=== PATIENT | male | born 1965 | race Caucasian/White ===

== ENCOUNTER → 2017-10-25 10:42 | Outpatient (CLI) | payer SELFPAY | PROVIDERS: PCP Internal Medicine Adolescent Medicine; Visit Provider Nurse Practitioner Family | DX: Z02.4 Encounter for examination for driving license (principal) ==

== ENCOUNTER 2020-08-21 16:57 | Observation (INO) | payer MEDICAID, SELFPAY ==
[2020-08-21] VITALS (16 sets, daily range): BP systolic 109–157; BP diastolic 56–103; PULSE 73–108; RESP 12–20; TEMP 36.4–43; O2SAT 92–97; BMI 24.4; BMI 24.5
--- NOTE | 2020-08-21 17:26 | HMH.EDUTC ---
[facility] – [place], [place] Disposition Clinical Impression: Abdominal pain Qualifiers: Abdominal location: unspecified location Qualified Code(s): R10.9 - Unspecified abdominal pain Disposition: Still a Patient Condition on Discharge: Good Referrals: PCP,Monique [Primary Care Provider] - Time of Disposition: 17:36 Medical Decision Making - Shant Inquiry Pt receiving controlled substance: No Shant was queried for this patient: No Vital Signs: 08/21/20 17:22 Temperature 98.5 F Temperature Source Oral Pulse Rate [Radial] 89 Respiratory Rate 14 Blood Pressure [Right Arm] 157/103 H Blood Pressure Mean [Right Arm] 121 Blood Pressure Source [Right Arm] Automatic Cuff Blood Pressure Position [Right Arm] Sitting 02 Sat by Pulse Oximetry 97 Oxygen Delivery Method Room Air Medical Decision Narrative: Patient unable to sit upright due to pain and advised that he is unable to urinate at this time, due to complaint of abdominal pain recommended that patient be transferred to the ED for further evaluation and treatment and patient agreed, Called ED spoke with Armida Burnett RN and patient report given and patient transferred to room 10 via wheelchair without difficulty [facility] – [place], [place] HPI - General Stated complaint: Abd pain Time Seen by Provider: 08/21/20 17:26 Mode of Arrival: Ambulatory Source of Information: Patient Limitations: No Limitations Description of Symptoms (Recalled from Triage Doc. by RN): abdominal pain, no appetite, started th morning, pain so bad it went down on his knees. 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 States that now he isnt able to stand up straight and hurts when he walks or touches his abdomen States that he has had similar eppisodes in the past but they improved but this time the pain has continued Unsure if he had a fever or not but thinks he may have had one yesterday Last BM early this morning - Related Data Home Medications Medication Instructions Recorded Confirmed No Known Home Medications 10/11/19 10/11/19 Allergies Allergy/AdvReac Type Severity Reaction Status Date / Time codeine [CODEINE] Allergy Unknown Verified 10/11/19 11:36 - Worker's Comp Is this a Worker's Comp case?: No [facility] History - Hepatitis A Screen Drug use history?: No High risk sexual behaviors?: No History of sexually transmitted infection?: No Currently employed?: No Childcare worker?: No Do you have indoor plumbing?: Yes Do you have electricity?: Yes Attestation statement:: This patient has been screened for Hepatitis A risk factors. I have reviewed the patient's past medical history: Yes Medical History: Reports:: Chronic Obstructive Pulmonary Disease (COPD) Comment: re-reconstructive surgery on R ankle, jaw. Cervical spine surgery. - Social History Smoking Status: Current every day smoker Tobacco Type: cigarettes # Packs/Day (cigarettes): 1 Alcohol Intake: never Occupational Status: employed Family Hx:: No significant family history ROS Obtained: Yes All systems reviewed & no additional complaints, Yes Systems reviewed as appropriate & no additional complaints - Constitutional Constitutional: Reports system reviewed and no additional complaints, except a
--- NOTE | 2020-08-21 17:36 | CT_ITS ---
PROCEDURE: CT ABDOMEN PELVIS W CON CLINICAL INDICATION: abd pain Right-sided and mid abdominal pain COMPARISON: No exams were available for comparison TECHNIQUE: IV Contrast: 75ML Isovue 370 Oral Contrast None Axial images obtained with sagittal and coronal reformats. All CT scans at the facility use one or more dose reduction, viz: automated exposure control, ma/kV adjustment per patient size (including targeted exams where dose is matched to indication, i.e. head), or iterative reconstruction technique. FINDINGS: LOWER THORAX: There are atelectatic changes in the right middle and right lower lobe. ABDOMEN & PELVIS: There is a small hiatal hernia. The liver, gallbladder, spleen, adrenal glands, and pancreas have an unremarkable appearance. No renal or ureteral calculi. There are bilateral exophytic renal cyst and there is mild stranding of the perinephric renal fat on both sides. The No intestinal obstruction or free air. The appendix is mildly distended at 9 mm with stranding of the periappendiceal fat consistent with acute appendicitis. No evidence of abscess or perforation. There is mild thickening of the anterior pararenal fascia on the right. Bowel gas pattern is nonspecific with a few scattered air-fluid levels within the small bowel. Urinary bladder wall is mildly thickened but could be due to nondistention. No free air evident the. There is a 5 mm calcific density within the region of the central aspect of the penis. This could be due to a vascular calcification or a stone within the penile urethra. No acute bony findings. There is degenerative disc disease at L5-S1. IMPRESSION: 1. Findings compatible with acute appendicitis. No evidence of abscess or perforation. 2. 5 x 2 mm calcific density within the central aspect of the penis which could be vascular calcification or stone within the penile urethra. Dictated by: Bob Serrano MD 08/22/2020 06:50 Bob Serrano MD in [place] 08/22/2020 06:50
--- NOTE | 2020-08-21 17:41 | HMH.EDGENADL ---
ED Disposition Clinical Impression: Abdominal pain Qualifiers: Abdominal location: unspecified location Qualified Code(s): R10.9 - Unspecified abdominal pain Acute appendicitis Qualifiers: Acute appendicitis type: with localized peritonitis Appendicitis gangrene presence: without gangrene Appendicitis perforation presence: without perforation Appendicitis abscess presence: without abscess Qualified Code(s): K35.30 - Acute appendicitis with localized peritonitis, without perforation or gangrene Disposition: Admitted as Observation Condition on Discharge: Fair Referrals: PCP,No [Primary Care Provider] - - Critical Care Critical Care Time: No Attestation: On 08/21/20, the high probability of a clinically significant, sudden or life threatening deterioration of the following system(s) required my full and direct attention, intervention and personal management. The time I documented below is in addition to time spent performing reported procedures but includes the following listed in this critical care notation. Medical Decision Making - Shant Inquiry Pt receiving controlled substance: No Shant was queried for this patient: No Vital Signs: 08/21/20 17:22 08/21/20 17:35 Temperature 98.5 F 98.1 F Temperature Source Oral Oral Pulse Rate [Radial] 89 80 Respiratory Rate 14 18 Blood Pressure [Right Arm] 157/103 H 156/97 H Blood Pressure Mean [Right Arm] 121 116 Blood Pressure Source [Right Arm] Automatic Cuff Automatic Cuff Blood Pressure Position [Right Arm] Sitting Sitting 02 Sat by Pulse Oximetry 97 97 Oxygen Delivery Method Room Air Room Air - Lab Data Lab Results 08/21/20 17:41: Urine Color Yellow, Urine Appearance Clear, Urine pH 6.0, Ur Specific [place] 1.025, Urine Protein Negative, Urine Glucose (UA) Negative, Urine Ketones Negative, Urine Blood Negative, Urine Nitrate Negative, Urine Bilirubin Negative, Urine Urobilinogen 0.2, Ur Leukocyte Esterase Negative, Urine RBC 3-5, Ur Squamous Epith Cells Occasional 08/21/20 18:01: WBC 9.3, RBC 4.87, Hgb 15.2, Hct 46.9, MCV 96.3 H, MCH 31.2, MCHC 32.4, RDW 13.6, Plt Count 308, MPV 7.8, Neut % (Auto) 60.2, Lymph % (Auto) 31.0, [place] % (Auto) 6.9, Eos % (Auto) 1.3, Baso % (Auto) 0.7, Neut # (Auto) 5.6, Lymph # (Auto) 2.9, [place] # (Auto) 0.6, Eos # (Auto) 0.1, Baso # (Auto) 0.1 08/21/20 18:01: Sodium 138, Potassium 3.9, Chloride 100, Carbon Dioxide 31 H, Anion Gap 10.9, BUN 10, Creatinine 0.90, Estimated Creat Clear 105, Estimated GFR 88, Est GFR ( Amer) 106, Glucose 105 H, Calcium 9.7, Total Bilirubin 1.1, AST 29, ALT 29, Alkaline Phosphatase 87, Total Protein 8.3 H, Albumin 4.9, Globulin 3.4 H, Albumin/Globulin Ratio 1.4 08/21/20 18:01: SARS-CoV-2 IgG Ab (Rapid) Negative, SARS-CoV-2 IgM Ab (Rapid) Negative Result diagrams: 08/21/20 18:01 08/21/20 18:01 Orders (Tests/Meds): ED MEDICATIONS Generic Name Dose Route Start Last Admin Trade Name Freq PRN Reason Stop Dose Admin Sodium Chloride 1,000 mls @ 999 mls/hr 08/21/20 17:45 08/21/20 17:47 Sod Chlor 0.9% 1000ml Bag IV 08/21/20 18:45 999 mls/hr .Q1H1M EARLINE Administration Lactated Ringer's 1,000 mls @ 100 mls/hr 08/21/20 20:00 Lactated Ringer's 1000 Ml Bag IV 09/20/20 19:59 .Q10H EARLINE Discontinued Medications Generic Name Dose Route Start Last Admin Trade Name Freq PRN Reason Stop Dose Admin Fentanyl Citrate 50 mcg 08/21/20 19:20 08/21/20 19:24 Fentanyl 100mcg/2ml Vial IV 08/21/20 19:21 50 mcg ONCE ONE Administration Cefotetan Disodium 2 gm/ 100 mls @ 200 mls/hr 08/21/20 19:33 Sodium Chloride IV 08/21/20 19:34 ONCE ONE Protocol Iopamidol 75 ml 08/21/20 18:47 08/21/20 18:48 Iopamidol-370 (76%);100ml Bottle IV 08/21/20 18:48 75 ml ONCE ONE Administration Ketorolac Tromethamine 30 mg 08/21/20 17:45 08/21/20 17:47 Ketorolac 30mg/Ml Vial IV 08/21/20 17:46 30 mg ONCE ONE Administration Ondansetron HCl 4 mg 08/21/20 17:45
[2020-08-21 17:46] LABS: Microscopic, Urine URINE MICROSCOPIC (MICROSCOPIC)
[2020-08-21 17:50] LABS: Appearance,Urine CLEAR (Clear); Bilirubin,Urine Negative (Negative); Blood, Urine Negative (Negative); Color,Urine YELLOW (Yellow); Glucose,Urine (UA) Negative (Negative); Ketones,Urine Negative (Negative); Leukocyte Esterase,Urine Negative (Negative); Nitrate,Urine Negative (Negative); Protein,Urine Negative (Negative); Specific Gravity, Urine 1.025 (1.005-1.030); Urobilinogen,Urine 0.2 EU/dl (0.2)
[2020-08-21 18:10] LABS: Basophils # 0.1 K/mm3 (0-0.2); Basophils % 0.7 % (0.1-2.0); Eosinophils # 0.1 K/mm3 (0.0-0.4); Eosinophils % 1.3 % (0.1-12.0); Hematocrit 46.9 % (42.0-52.0); Hemoglobin 15.2 g/dL (14.1-18.0); Lymphocytes # 2.9 K/mm3 (0.7-4.5); Mean Corpuscular HGB Conc 32.4 g/dL (31.8-35.4); Mean Corpuscular Hemoglobin 31.2 pg (27.0-31.2); Mean Corpuscular Volume 96.3 fl (80-94); Mean Platelet Volume 7.8 fl (7.4-10.4); Monocytes # 0.6 K/mm3 (0.1-1.0); Monocytes % 6.9 % (1.7-9.3); Neutrophils # 5.6 K/mm3 (1.8-7.8); Neutrophils % 60.2 % (37.0-80.0); Platelet Count 308 K/mm3 (142-424); Red Blood Count 4.87 M/mm3 (4.60-6.20); Red Cell Distribution Width 13.6 % (11.5-17.5); White Blood Count 9.3 K/mm3 (4.8-10.8)
--- NOTE | 2020-08-21 18:15 | PC.NURSE ---
Patient gone to radiology
[2020-08-21 18:16] LABS: Chloride 100 mmol/L (98-107); Potassium 3.9 mmoL/L (3.5-5.1); Sodium 138 mmol/L (136-145)
[2020-08-21 18:19] LABS: Alanine Aminotransferase 29 U/L (12-78); Albumin Level 4.9 g/dl (3.5-5.0); Albumin/Globulin Ratio 1.4 (1.1-1.8); Alkaline Phosphatase 87 U/L (38-126); Anion Gap 10.9 mEq/L (5-15); Aspartate Amino Transferase 29 U/L (17-59); Bilirubin,Total 1.1 mg/dl (0.2-1.3); Blood Urea Nitrogen 10 mg/dl (9-20); Carbon Dioxide 31 mmol/L (22.0-30.0); Creatinine Clearance Estimated 105 mL/min (50-200); Estimated Glomerular Filt Rate 88 ml/min (>60); GFR (African American) 106 ML/MIN (>60); Globulin 3.4 g/dL (1.3-3.2); Total Protein,Serum 8.3 g/dl (6.3-8.2)
[2020-08-21 18:20] LABS: Calcium 9.7 mg/dl (8.4-10.2); Glucose 105 mg/dl (74-100)
--- NOTE | 2020-08-21 18:26 | PC.NURSE ---
pt back from radiology
[2020-08-21 18:31] LABS: Squamous Epithelial Cell,Urine Occasional #/hpf (0-5)
--- NOTE | 2020-08-21 19:00 | PC.NURSE ---
pt return from Ct
--- NOTE | 2020-08-21 19:29 | PC.NURSE ---
Dr speaking with Dr Jarvis at this time
[2020-08-21 19:33] LABS: Coronavirus 19 IgG Antibody Negative (Negative); Coronavirus 19 IgM Antibody Negative (Negative)
--- NOTE | 2020-08-21 19:33 | PC.NURSE ---
MILLA, BLOCK HAND SPOKE TO ANKITA VALLES AND NOTIFIED OF SURGERY.
--- NOTE | 2020-08-21 20:16 | HMH.GSHP ---
HPI HPI: Patient is a 55-year-old male with history of COPD and history of opiate addiction on Suboxone. For several weeks he has had intermittent waxing and waning right lower quadrant abdominal pain. Yesterday states he had significant onset of abdominal pain. It is quite severe. 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 He drove himself back to [place] from [place]. He presented to the emergency department and there was concern for possible acute appendicitis. He underwent CT scan which revealed findings consistent with uncomplicated appendicitis. Surgical consultation was obtained. [facility] History Medical History: Reports:: Chronic Obstructive Pulmonary Disease (COPD) *Have you ever received a pneumonia vaccine?: No *Have you received a flu vaccine this season?: No - *Social History Smoking Status: Current every day smoker Tobacco Type: cigarettes # Packs/Day (cigarettes): 1 Alcohol Intake: never *Occupational Status:: employed *Travel in the last 8 weeks: None Family Hx:: No significant family history Review of Systems - Review of Systems Review of systems:: pertinent systems reviewed and negative unless documented below Meds Home Medications Medication Instructions Recorded Confirmed Type No Known Home Medications 10/11/19 10/11/19 History Allergies Allergy/AdvReac Type Severity Reaction Status Date / Time codeine [CODEINE] Allergy Unknown Verified 10/11/19 11:36 Exam Vital signs and Labs for Last 24 Hours: Temp Pulse Resp BP Pulse Ox 98.1 F 80 18 156/97 H 97 08/21/20 17:35 08/21/20 17:35 08/21/20 17:35 08/21/20 17:35 08/21/20 17:35 Laboratory Results - last 24 hr 08/21/20 17:41: Urine Color Yellow, Urine Appearance Clear, Urine pH 6.0, Ur Specific [place] 1.025, Urine Protein Negative, Urine Glucose (UA) Negative, Urine Ketones Negative, Urine Blood Negative, Urine Nitrate Negative, Urine Bilirubin Negative, Urine Urobilinogen 0.2, Ur Leukocyte Esterase Negative, Urine RBC 3-5, Ur Squamous Epith Cells Occasional 08/21/20 18:01: WBC 9.3, RBC 4.87, Hgb 15.2, Hct 46.9, MCV 96.3 H, MCH 31.2, MCHC 32.4, RDW 13.6, Plt Count 308, MPV 7.8, Neut % (Auto) 60.2, Lymph % (Auto) 31.0, [place] % (Auto) 6.9, Eos % (Auto) 1.3, Baso % (Auto) 0.7, Neut # (Auto) 5.6, Lymph # (Auto) 2.9, [place] # (Auto) 0.6, Eos # (Auto) 0.1, Baso # (Auto) 0.1 08/21/20 18:01: Sodium 138, Potassium 3.9, Chloride 100, Carbon Dioxide 31 H, Anion Gap 10.9, BUN 10, Creatinine 0.90, Estimated Creat Clear 105, Estimated GFR 88, Est GFR ( Amer) 106, Glucose 105 H, Calcium 9.7, Total Bilirubin 1.1, AST 29, ALT 29, Alkaline Phosphatase 87, Total Protein 8.3 H, Albumin 4.9, Globulin 3.4 H, Albumin/Globulin Ratio 1.4 08/21/20 18:01: SARS-CoV-2 IgG Ab (Rapid) Negative, SARS-CoV-2 IgM Ab (Rapid) Negative I & O for Last 24 hours: Intake & Output 08/19/20 08/20/20 08/21/20 08/22/20 11:59 11:59 11:59 11:59 Weight 175 lb 0.012 oz - *Routine HEENT Exam Head: Present: normocephalic Eye: Present: EOMI, PERRL ENT: Present: mucous membranes moist - *Routine Neck Exam Present: supple. Absent: lymphadenopathy - *Routine Respiratory Exam Present: CTA bilaterally - *Routine Cardiovascular Exam Present: RRR - *Routine Abdominal Exam Present: soft, normoactive bowel sounds, tenderness Comments: He has tenderness with guarding or rebound of the right lower quadrant - *Routine Extremities Exam Absent: cyanosis, clubbing, edema - *Routine Skin Exam Present: warm. Absent: rash - *Routine Neurological Exam Present: alert, oriented X3 Results - Results Lab Results Last 24 Hours:: Laboratory Results - last 24 hr 08/21/20 17:41: Urine Color Yellow, Urine Appearance Clear, Urine pH 6.0, Ur Specific [place] 1.025, Urine Protein Negative, Urine Glucose (UA) Negative, Urine Ketones Negative, Urine Blood Negative, Urine Nitrate Negative, Urine Bilirubin Negative, Urine Urobilinogen 0.2, Ur Leukocyte Esterase Negative, Urine
--- NOTE | 2020-08-21 20:50 | P.PN_ITS ---
[facility] Anesthesia Checklist - Structural Data Admitted From: Emergency Dept Planned Operative Procedure/s: lap appy Consent for Planned Operative Procedure(s) Verified: Yes - Airway Assessment C-Spine Mobility Assessed: Yes TMJ Mobility Assessed: Yes Dentition: Poor Dentition - Neurological Assessment Level of Consciousness: Awake, Alert, Appropriate - Anesthesia Plan Anesthesia Risk discussed: Yes Anesthesia Plan: Verified ASA Class: II Anesthesia Type: General [facility] History I have reviewed the patient's past medical history: Yes Medical History: Reports:: Chronic Obstructive Pulmonary Disease (COPD) *Have you ever received a pneumonia vaccine?: No *Have you received a flu vaccine this season?: No Anesthesia experience/problems:: none - *Social History Smoking Status: Current every day smoker Tobacco Type: cigarettes # Packs/Day (cigarettes): 1 Alcohol Intake: never Substance Use Type: denies use *Occupational Status:: employed *Travel in the last 8 weeks: None Family Hx:: No significant family history
--- NOTE | 2020-08-21 21:09 | PC.NURSE ---
patient admitted [id number]
--- NOTE | 2020-08-21 21:42 | P.OP_ITS ---
Date of procedure: 08/21/20 Pre-op Diagnosis:: Acute appendicitis Post-op Diagnosis:: Same Procedure performed:: Laparoscopic appendectomy Surgeon:: Steve Huizar MD COMMERCIAL LEASING MANAGER:: Nish Edwards Anesthesia: GETA Estimated blood loss (mL): 20 Clinical Note:: Patient is a 55-year-old male with history of COPD and history of opiate addiction on Suboxone. For several weeks he has had intermittent waxing and waning right lower quadrant abdominal pain. Yesterday states he had significant onset of abdominal pain. It is quite severe. 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 He drove himself back to [employer] from [place]. He presented to the emergency department and there was concern for possible acute appendicitis. He underwent CT scan which revealed findings consistent with uncomplicated appendicitis. Surgical consultation was obtained. Patient was seen and examined in the emergency department. He had focal peritonitis in the right lower quadrant. Plan was made for emergent appendectomy Operative findings:: Patient had a significantly inflamed suppurative but nonperforated appendicitis. There were inflammatory adhesions of the terminal ileum to the appendix which was adherent to the right pelvic sidewall. Operative note:: Consent was obtained patient taken emergently to the operating room. He was positioned in a supine position. He was given broad-spectrum intravenous antibiotic. General anesthesia was induced. Ayala catheter was placed. Abdomen was prepped and draped in the standard surgical fashion. Subumbilical skin incision was made and while performing abdominal wall the Veress needle was inserted. CO2 pneumoperitoneum was achieved to 15 mmHg. 12 mm optical trocar was inserted at the umbilicus. Intraperitoneal contents were visualized. There was noted to be findings consistent with peritoneal inflammation with some patchy erythema of the small bowel serosa. 5 mm trocar was inserted in the suprapubic location and additional 5 mm trocar was inserted through the right upper abdominal trocar site. Terminal ileum was adherent to the right lateral pelvic sidewall due to acute inflammation. There was noted to be significantly inflamed appendix. This was grasped with an endoscopic [place]. There is some relatively thick lateral peritoneal attachments which required careful dissection with laparoscopic Metzenbaum dissection and maria d ultrasonic robotic samantha. The mesoappendix was divided with a's ultrasonic robotic samantha with care taken to coagulate the appendiceal artery in the process. Dissection was carried down to the appendiceal base which was somewhat difficult due to the acute and chronic inflammation. Ultimately the appendix was divided at its base with an endoscopic BENOIT linear cutting stapling device. This required 2 firings of the BENOIT linear cutting stapling device. Staple line appeared hemostatic and had good integrity. Appendix was placed within an Endo Catch retrieval device removed from the peritoneal cavity via the umbilical trocar site. Limited irrigation was performed. There appeared to be good hemostasis. Trochars were removed and CO2 pneumoperitoneum was evacuated. Fascia at the umbilicus was closed with a couple of interrupted 0 Vicryl sutures. Local anesthetic was infiltrated. Skin incisions were closed with 4-0 Monocryl in subcuticular fashion. Steri-Strips and clean dry sterile dressings were applied. Condition: stable Disposition: PACU Specimens:: Appendix Complications:: None immediately apparent
--- NOTE | 2020-08-21 21:58 | P.PN_ITS ---
[facility] Anesthesia Record Part I Intake, IV Amount: 1,500 Estimated blood loss (mL): 0 Urine output (mL): 300 Blood Pressure: 137/56 SaO2: 92 Pulse Rate: 108 Respiratory Rate: 14 Temperature: 97.5 F Patient is:: Awake, Stable Stable to PACU at:: 21:55
--- NOTE | 2020-08-21 22:30 | PC.NURSE ---
patient up to floor from surgery.
[2020-08-21 22:39] LABS: Microscopic,Cath URINE MICROSCOPIC (MICROSCOPIC)
[2020-08-21 22:55] LABS: Appearance,Urine/Cath CLEAR (Clear); Bilirubin,Cath Negative (Negative); Blood, Urine/Cath Negative (Negative); Color,Urine/Cath YELLOW (Yellow); Glucose,Urine/Cath (UA) Negative (Negative); Ketones,Urine/Cath Negative (Negative); Leukocyte Esterase,Cath Negative (Negative); Nitrate,Cath Negative (Negative); Protein,Urine/Cath Negative (Negative); Specific Gravity, Urine/Cath <= 1.005 (1.005-1.030); Urobilinogen,Cath 0.2 EU/dl (0.2)
[2020-08-21 23:37] LABS: Bacteria,Urine/Cath TRACE /lpf; WBC,Urine/Cath Occasional #/hpf (0-3)
[2020-08-22] VITALS (14 sets, daily range): BP systolic 90–124; BP diastolic 49–70; PULSE 52–71; RESP 14–20; TEMP 36.6–36.9; O2SAT 92–98; BMI 25.4
--- NOTE | 2020-08-22 04:06 | PC.NURSE ---
Pt A&OX4. lungs cta. pt c/o abd pain medicated per DEC. post appy surgical dressing in place c/d/i. pt voids per urinal. 20RAC LR @ 100 ml/hr. pt has rested at intervals in this shift.
--- NOTE | 2020-08-22 06:57 | HMH.GSPN ---
Subjective Narrative: He states that he is very sore this morning . Progress Note: A&P (1) Suppurative appendicitis Status: Acute Assessment and plan: Overall, doing fairly well status post laparoscopic appendectomy. Follow-up morning labs Increase ambulation Continue antibiotics for now (may discharge with short course of antibiotics secondary to suppurative nature of appendicitis) Slowly increase diet Exam Vital signs and Labs for Last 24 Hours: Temp Pulse Resp BP Pulse Ox 98.4 F 55 L 16 99/59 L 92 L 08/22/20 05:15 08/22/20 05:15 08/22/20 05:15 08/22/20 05:15 08/22/20 06:56 Laboratory Results - last 24 hr 08/21/20 17:41: Urine Color Yellow, Urine Appearance Clear, Urine pH 6.0, Ur Specific [place] 1.025, Urine Protein Negative, Urine Glucose (UA) Negative, Urine Ketones Negative, Urine Blood Negative, Urine Nitrate Negative, Urine Bilirubin Negative, Urine Urobilinogen 0.2, Ur Leukocyte Esterase Negative, Urine RBC 3-5, Ur Squamous Epith Cells Occasional 08/21/20 18:01: WBC 9.3, RBC 4.87, Hgb 15.2, Hct 46.9, MCV 96.3 H, MCH 31.2, MCHC 32.4, RDW 13.6, Plt Count 308, MPV 7.8, Neut % (Auto) 60.2, Lymph % (Auto) 31.0, [place] % (Auto) 6.9, Eos % (Auto) 1.3, Baso % (Auto) 0.7, Neut # (Auto) 5.6, Lymph # (Auto) 2.9, [place] # (Auto) 0.6, Eos # (Auto) 0.1, Baso # (Auto) 0.1 08/21/20 18:01: Sodium 138, Potassium 3.9, Chloride 100, Carbon Dioxide 31 H, Anion Gap 10.9, BUN 10, Creatinine 0.90, Estimated Creat Clear 105, Estimated GFR 88, Est GFR ( Amer) 106, Glucose 105 H, Calcium 9.7, Total Bilirubin 1.1, AST 29, ALT 29, Alkaline Phosphatase 87, Total Protein 8.3 H, Albumin 4.9, Globulin 3.4 H, Albumin/Globulin Ratio 1.4 08/21/20 18:01: SARS-CoV-2 IgG Ab (Rapid) Negative, SARS-CoV-2 IgM Ab (Rapid) Negative 08/21/20 20:15: Urine Color Yellow, Urine Appearance Clear, Urine pH 6.0, Ur Specific [place] <= 1.005, Urine Protein Negative, Urine Glucose (UA) Negative, Urine Ketones Negative, Urine Blood Negative, Urine Nitrate Negative, Urine Bilirubin Negative, Urine Urobilinogen 0.2, Ur Leukocyte Esterase Negative, Urine WBC Occasional, Urine Bacteria Trace I & O for Last 24 hours: Intake & Output 08/19/20 08/20/20 08/21/20 08/22/20 11:59 11:59 11:59 11:59 Intake Total 3316 / 3316 Output Total 400 / 400 Balance 2916 / 2916 Weight 181 lb 7 oz - Constitutional no acute distress - *Routine Respiratory Exam Absent: respiratory distress - *Routine Cardiovascular Exam Present: RRR - *Routine Abdominal Exam Present: soft Comments: Dressings intact. Dressings are dry. No erythema.
[2020-08-22 07:05] LABS: Basophils % 0.1 % (0.1-2.0); Eosinophils % 0.1 % (0.1-12.0); Lymphocytes # 0.8 K/mm3 (0.7-4.5); Lymphocytes % 12.4 % (10-50); Mean Corpuscular HGB Conc 32.9 g/dL (31.8-35.4); Mean Corpuscular Hemoglobin 32.4 pg (27.0-31.2); Mean Corpuscular Volume 98.3 fl (80-94); Mean Platelet Volume 8.2 fl (7.4-10.4); Monocytes # 0.1 K/mm3 (0.1-1.0); Monocytes % 1.9 % (1.7-9.3); Neutrophils # 5.2 K/mm3 (1.8-7.8); Neutrophils % 85.5 % (37.0-80.0); Platelet Count 246 K/mm3 (142-424); Red Blood Count 3.86 M/mm3 (4.60-6.20); Red Cell Distribution Width 13.4 % (11.5-17.5)
[2020-08-22 07:14] LABS: Chloride 105 mmol/L (98-107); Potassium 4.8 mmoL/L (3.5-5.1); Sodium 136 mmol/L (136-145)
[2020-08-22 07:17] LABS: Anion Gap 8.8 mEq/L (5-15); Blood Urea Nitrogen 11 mg/dl (9-20); Carbon Dioxide 27 mmol/L (22.0-30.0); Creatinine Clearance Estimated 109 mL/min (50-200); Estimated Glomerular Filt Rate 88 ml/min (>60); GFR (African American) 106 ML/MIN (>60); Glucose 140 mg/dl (74-100)
--- NOTE | 2020-08-22 07:18 | SW/DCPLANNER ---
PATIENT ADMITTED TO [facility] WITH ABDOMINAL PAIN... 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 HE HAS A HISTORY OF DRUG ABUSE AND CURRENTLY TAKING SUBOXONE..PATIENT HAD SURGERY AND IS DOING WELL. DISPOSITION SHOULD BE SOON, IT APPEARS HE IS NOT GOING TO NEED ANY TYPE OF HOME CARE..WILL FOLLOW PATIENT THROUGH HIS STAY AND ASSIST IF THERE IS A NEED FOR ANY POST HOSPITAL STAY..
--- NOTE | 2020-08-22 07:24 | HMH.PHAVTE ---
[facility] Pharmacy VTE Monitoring - Patient Demographics Admission date: 08/21/20 Report Date: 08/22/20 Time: 07:24 Allergies/Adverse Reactions: Patient Allergies codeine [CODEINE] Allergy (Unknown, Verified 10/11/19 11:36) Height: 1.8 m Weight: 82.299 kg Patient Problems: Current Active Problems Abdominal pain (Acute) Acute appendicitis (Acute) Suppurative appendicitis (Acute) - VTE Risk Labs: VTE Related Lab Results Hgb 15.2 g/dL (14.1-18.0) 08/21/20 18:01 Hct 38.0 % (42.0-52.0) L 08/22/20 06:35 Plt Count 246 K/mm3 (142-424) 08/22/20 06:35 BUN 10 mg/dl (9-20) 08/21/20 18:01 Creatinine 0.90 mg/dl (0.66-1.25) 08/21/20 18:01 Estimated Creat Clear 105 mL/min (50-200) 08/21/20 18:01 Was VTE Risk Assessment Performed: Yes VTE Score: 2 VTE Risk Level: Very Low Risk - Prophylaxis VTE Prophylaxis Ordered?: Yes Types of VTE Prophylaxis: IPCS Thigh High Location of Applied Device: Bilateral Lower Extremeties
[2020-08-22 07:25] LABS: MANUAL DIFFERENTIAL MANUAL DIFFERENTIAL (MANUAL DIFF)
[2020-08-22 07:28] LABS: Calcium 8.3 mg/dl (8.4-10.2)
[2020-08-22 07:29] LABS: Hemoglobin 12.5 g/dL (14.1-18.0)
--- NOTE | 2020-08-22 07:50 | HMH.PHAINT ---
MEDICATION RECONCILIATION COMPLETED ON PATIENT USING [facility]. -TARSHA DEVINE, ROSAD
--- NOTE | 2020-08-22 08:21 | HMH.ACPN2 ---
Internal Medicine - PN: Subj *Date: 08/22/20 *Time: 08:21 Interval history: Events of yesterday noted, H&P reviewed. Patient feels like his abdomen is hurting this morning and somewhat swollen. He has been able to drink clear liquids well but notes that when he drank his coffee he had some pain. No vomiting, no diarrhea. No fever. Exam Vital signs and Labs for Last 24 Hours: Temp Pulse Resp BP Pulse Ox 97.8 F 58 L 18 115/59 L 92 L 08/22/20 07:33 08/22/20 07:33 08/22/20 07:33 08/22/20 07:33 08/22/20 07:33 Laboratory Results - last 24 hr 08/21/20 17:41: Urine Color Yellow, Urine Appearance Clear, Urine pH 6.0, Ur Specific [place] 1.025, Urine Protein Negative, Urine Glucose (UA) Negative, Urine Ketones Negative, Urine Blood Negative, Urine Nitrate Negative, Urine Bilirubin Negative, Urine Urobilinogen 0.2, Ur Leukocyte Esterase Negative, Urine RBC 3-5, Ur Squamous Epith Cells Occasional 08/21/20 18:01: WBC 9.3, RBC 4.87, Hgb 15.2, Hct 46.9, MCV 96.3 H, MCH 31.2, MCHC 32.4, RDW 13.6, Plt Count 308, MPV 7.8, Neut % (Auto) 60.2, Lymph % (Auto) 31.0, [place] % (Auto) 6.9, Eos % (Auto) 1.3, Baso % (Auto) 0.7, Neut # (Auto) 5.6, Lymph # (Auto) 2.9, [place] # (Auto) 0.6, Eos # (Auto) 0.1, Baso # (Auto) 0.1 08/21/20 18:01: Sodium 138, Potassium 3.9, Chloride 100, Carbon Dioxide 31 H, Anion Gap 10.9, BUN 10, Creatinine 0.90, Estimated Creat Clear 105, Estimated GFR 88, Est GFR ( Amer) 106, Glucose 105 H, Calcium 9.7, Total Bilirubin 1.1, AST 29, ALT 29, Alkaline Phosphatase 87, Total Protein 8.3 H, Albumin 4.9, Globulin 3.4 H, Albumin/Globulin Ratio 1.4 08/21/20 18:01: SARS-CoV-2 IgG Ab (Rapid) Negative, SARS-CoV-2 IgM Ab (Rapid) Negative 08/21/20 20:15: Urine Color Yellow, Urine Appearance Clear, Urine pH 6.0, Ur Specific [place] <= 1.005, Urine Protein Negative, Urine Glucose (UA) Negative, Urine Ketones Negative, Urine Blood Negative, Urine Nitrate Negative, Urine Bilirubin Negative, Urine Urobilinogen 0.2, Ur Leukocyte Esterase Negative, Urine WBC Occasional, Urine Bacteria Trace 08/22/20 06:35: WBC 6.0 D, RBC 3.86 L, Hgb 12.5 L D, Hct 38.0 L, MCV 98.3 H, MCH 32.4 H, MCHC 32.9, RDW 13.4, Plt Count 246, MPV 8.2, Neut % (Auto) 85.5 H, Lymph % (Auto) 12.4, [place] % (Auto) 1.9, Eos % (Auto) 0.1, Baso % (Auto) 0.1, Neut # (Auto) 5.2, Lymph # (Auto) 0.8, [place] # (Auto) 0.1, Eos # (Auto) 0.0, Baso # (Auto) 0.0 08/22/20 06:35: Sodium 136, Potassium 4.8 D, Chloride 105, Carbon Dioxide 27, Anion Gap 8.8, BUN 11, Creatinine 0.90, Estimated Creat Clear 109, Estimated GFR 88, Est GFR ( Amer) 106, Glucose 140 H D, Calcium 8.3 L D I & O for Last 24 hours: Intake & Output 08/19/20 08/20/20 08/21/20 08/22/20 11:59 11:59 11:59 11:59 Intake Total 3556 / 3556 Output Total 400 / 400 Balance 3156 / 3156 Weight 181 lb 7 oz Narrative: Alert, pleasant. Oriented. Oropharynx clear, no JVD. Lungs have good air movement, some smoker's rhonchi in both lower lung wagoner. No wheezing. Heart rate regular. Abdominal scars look well healing from his surgery yesterday. No evidence of drainage or redness. Generalized abdominal exam is somewhat tender but no rebound or guarding, abdomen is soft. No distal edema or clubbing. Neurologically intact Assessment and Plan (1) Suppurative appendicitis Status: Acute Category: Medical Code(s): K35.80 - Unspecified acute appendicitis Surgery notes reviewed, close observation, clear liquids cautiously (2) Panlobular emphysema Status: Acute Category: Medical Code(s): J43.1 - Panlobular emphysema Nebulizer treatments, incentive spirometer.
[2020-08-22 09:21] LABS: Lymphocytes % 13 % (10-50); Monocytes % 1 % (2-9); Neutrophils % 86 % (42-76); Platelet Estimate Normal; RBC Morphology Normal; Total Cells Counted 100
--- NOTE | 2020-08-22 13:49 | PC.NURSE ---
Pt walked in the [place].
[2020-08-23] VITALS: BP 120/70; PULSE 80; RESP 16; TEMP 36.6; O2SAT 93
[2020-08-23 03:37] VITALS: BP 116/62; PULSE 59; RESP 16; TEMP 36.6; O2SAT 91
--- NOTE | 2020-08-23 04:06 | PC.NURSE ---
PT HAS NOT SLEPT TONIGHT,REPORTS JUST CAN NOT SLEEP,BLINDS HAVE BEEN PULLED FOR HIM AND EVEN OFFERED A FAN,BECAUSE HE REPORTS HE NEEDS NOISE,REPORTS T.V. IS FINE.MEDICATED SEVERAL TIMES FOR PAIN,3 LAP APPY SITE C,D,I,POSITIVE BOWEL SOUNDS X4 QUADS,PT HAS BEEN USING HIS URINAL,CLEAR YELLOW URINE NOTED.LUNGS CLEAR TO ASCULTATE ALL FRONT
[2020-08-23 05:05] VITALS: BMI 25.4
--- NOTE | 2020-08-23 06:13 | HMH.DCSUM ---
General - General Admission date:: 08/21/20 Discharge date: 08/23/20 Hospital Course Hospital Course: Presented to ER with abdominal pain. Evaluation identified appendicitis. Surgery was consulted and patient was taken fo rlaproscopic appendectomy. Appendix was suppurative in nature. He was initiated on Antibiotics with gradual improvement in pain and tolerance of ambulation. Remained afebrile and normotensive after procedure. Medically stable with plan for close follow-up with surgery and primary care. Continue 5 more days of PO antibiotics due to suppurative nature of appendicitis. No Nausea, emesis, SUE, CP, SOA, fever on day of DC. Objective Vital signs: Temp Pulse Resp BP Pulse Ox 97.9 F 59 L 16 116/62 91 L 08/23/20 03:37 08/23/20 03:37 08/23/20 03:37 08/23/20 03:37 08/23/20 03:37 no acute distress - *Routine HEENT Exam Head: Present: normocephalic Eye: Present: EOMI, PERRL ENT: Present: mucous membranes moist - *Routine Neck Exam Present: supple - *Routine Respiratory Exam Present: CTA bilaterally - *Routine Cardiovascular Exam Present: RRR - *Routine Abdominal Exam Present: soft, normoactive bowel sounds, tenderness (diffuse, worse in RLQ). Absent: distended, rebound, guarding - *Routine Extremities Exam Absent: cyanosis, clubbing, edema - *Routine Skin Exam Present: warm. Absent: rash Results Labs on day of discharge: Labs from last 24 hours 08/22/20 08/22/20 06:35 06:35 WBC 6.0 D RBC 3.86 L Hgb 12.5 L D Hct 38.0 L MCV 98.3 H MCH 32.4 H MCHC 32.9 RDW 13.4 Plt Count 246 MPV 8.2 Neut % (Auto) 85.5 H Lymph % (Auto) 12.4 [place] % (Auto) 1.9 Eos % (Auto) 0.1 Baso % (Auto) 0.1 Neut # (Auto) 5.2 Lymph # (Auto) 0.8 [place] # (Auto) 0.1 Eos # (Auto) 0.0 Baso # (Auto) 0.0 Total Counted 100 Neutrophils % (Manual) 86 H Lymphocytes % (Manual) 13 Monocytes % (Manual) 1 L Platelet Estimate Normal RBC Morphology Normal Sodium 136 Potassium 4.8 D Chloride 105 Carbon Dioxide 27 Anion Gap 8.8 BUN 11 Creatinine 0.90 Estimated Creat Clear 109 Estimated GFR 88 Est GFR ( Amer) 106 Glucose 140 H D Calcium 8.3 L D DS: Diagnosis - Discharge Diagnosis (1) Suppurative appendicitis Status: Resolved (2) Panlobular emphysema Status: Chronic (3) Postoperative anemia Status: Acute Problem details: mild drop in H/H. Secondary to fluid/IV hydration and surgical loss. no indication for transfusion. Should resolve with normal PO nutrition. Discharge Plan - Patient Discharge Instructions ACTIVITY: Continue current activity, No heavy lifting DIET: continue same diet Patient Instructions: How to Care for a Surgical Wound, Appendicitis, DI for Abdominal Pain-Adult, DI for Surgical Site Infection, Appendectomy -- Laparoscopic Surgery - Follow up Plan Follow up with: Steve Huizar MD [Staff Physician] - 09/06/20 1:15 pm () PCP,No [Primary Care Provider] - Disposition: Home, Self-Skilled Nursing Medications: Home Medications Medication Instructions Recorded Confirmed Type Buprenorphine HCl/Naloxone HCl 1 each SL DAILY 08/21/20 08/21/20 History [Suboxone 8 mg-2 mg Sl Film] Amoxicillin/Potassium Clav 1 tab PO Q12H #10 tab 08/22/20 Rx [Augmentin 875-125 Tablet] Hydrocod/Acet 5/325 mg [[place] 1 - 2 tab PO Q6HP PRN #13 tab 08/22/20 Rx 5/325mg tablet] Prescriptions/Medication Reconciliation: New Amoxicillin/Potassium Clav [Augmentin 875-125 Tablet] 1 tab PO Q12H #10 tab Hydrocod/Acet 5/325 mg [[place] 5/325mg tablet] 1 - 2 tab PO Q6HP PRN #13 tab PRN Reason: post-op pain Continued Buprenorphine HCl/Naloxone HCl [Suboxone 8 mg-2 mg Sl Film] 1 each SL DAILY - Problem Reconciliation Problems Reviewed?: Yes
[2020-08-23 07:30] LABS: Basophils % 0.7 % (0.1-2.0); Eosinophils % 0.7 % (0.1-12.0); Hemoglobin 11.4 g/dL (14.1-18.0); Lymphocytes # 2.8 K/mm3 (0.7-4.5); Lymphocytes % 44.9 % (10-50); Mean Corpuscular HGB Conc 33.5 g/dL (31.8-35.4); Mean Corpuscular Hemoglobin 31.7 pg (27.0-31.2); Mean Corpuscular Volume 94.8 fl (80-94); Mean Platelet Volume 8.3 fl (7.4-10.4); Monocytes # 0.4 K/mm3 (0.1-1.0); Monocytes % 6.5 % (1.7-9.3); Neutrophils # 2.9 K/mm3 (1.8-7.8); Neutrophils % 47.2 % (37.0-80.0); Platelet Count 235 K/mm3 (142-424); Red Blood Count 3.58 M/mm3 (4.60-6.20); Red Cell Distribution Width 13.5 % (11.5-17.5); White Blood Count 6.2 K/mm3 (4.8-10.8)
[2020-08-23 07:40] LABS: Chloride 108 mmol/L (98-107); Potassium 3.7 mmoL/L (3.5-5.1); Sodium 136 mmol/L (136-145)
[2020-08-23 07:42] LABS: Alanine Aminotransferase 16 U/L (12-78); Alkaline Phosphatase 54 U/L (38-126); Aspartate Amino Transferase 18 U/L (17-59); Bilirubin,Total 0.9 mg/dl (0.2-1.3); Blood Urea Nitrogen 10 mg/dl (9-20); Creatinine Clearance Estimated 98 mL/min (50-200); Estimated Glomerular Filt Rate 78 ml/min (>60); GFR (African American) 94 ML/MIN (>60)
[2020-08-23 07:43] LABS: Albumin/Globulin Ratio 1.2 (1.1-1.8); Anion Gap 6.7 mEq/L (5-15); Calcium 8.3 mg/dl (8.4-10.2); Carbon Dioxide 25 mmol/L (22.0-30.0); Globulin 2.6 g/dL (1.3-3.2); Glucose 104 mg/dl (74-100); Total Protein,Serum 5.6 g/dl (6.3-8.2)
[2020-08-23 08:00] VITALS: BP 148/83; PULSE 54; RESP 18; TEMP 36.8; O2SAT 93
--- NOTE | 2020-08-23 08:03 | HMH.GSPN ---
Subjective Patient reports: no new complaints, feels better Narrative: States not sleeping well. Feels ready to go home. Progress Note: A&P (1) Suppurative appendicitis Status: Resolved (2) Panlobular emphysema Status: Chronic (3) Postoperative anemia Problem details: mild drop in H/H. Secondary to fluid/IV hydration and surgical loss. no indication for transfusion. Should resolve with normal PO nutrition. Status: Acute Assessment and Plan for All Diagnoses:: Discharge home. Exam Vital signs and Labs for Last 24 Hours: Temp Pulse Resp BP Pulse Ox 97.9 F 59 L 16 116/62 91 L 08/23/20 03:37 08/23/20 03:37 08/23/20 03:37 08/23/20 03:37 08/23/20 03:37 Laboratory Results - last 24 hr 08/22/20 06:35: Total Counted 100, Neutrophils % (Manual) 86 H, Lymphocytes % (Manual) 13, Monocytes % (Manual) 1 L, Platelet Estimate Normal, RBC Morphology Normal 08/23/20 06:30: WBC 6.2, RBC 3.58 L, Hgb 11.4 L, Hct 34.0 L, MCV 94.8 H, MCH 31.7 H, MCHC 33.5, RDW 13.5, Plt Count 235, MPV 8.3, Neut % (Auto) 47.2, Lymph % (Auto) 44.9, [place] % (Auto) 6.5, Eos % (Auto) 0.7, Baso % (Auto) 0.7, Neut # (Auto) 2.9, Lymph # (Auto) 2.8, [place] # (Auto) 0.4, Eos # (Auto) 0.0, Baso # (Auto) 0.0 I & O for Last 24 hours: Intake & Output 08/20/20 08/21/20 08/22/20 08/23/20 11:59 11:59 11:59 11:59 Intake Total 3556 / 3556 3418 / 3418 Output Total 400 / 400 1900 / 1900 Balance 3156 / 3156 1518 / 1518 Weight 181 lb 7 oz 181 lb 6 oz - *Routine Abdominal Exam Present: soft
== END 2020-08-23 10:19 | disposition home or self-care (01) ==
LOC: UTC 17:05 → ER 17:35 → SDC 20:25 → 2ND 21:13
PROVIDERS: Admitting Provider Internal Medicine Adolescent Medicine; Emergency Provider Family Medicine; Referring Provider Surgery; Visit Provider Internal Medicine Adolescent Medicine
PROC: 0DTJ4ZZ Resection of Appendix, Percutaneous Endoscopic Approach (ICD-10-PCS; CPT 44970; principal; 2020-08-21 20:30)
DX: K35.80 Unspecified acute appendicitis (principal); J44.9 Chronic obstructive pulmonary disease, unspecified
CPT/HCPCS: 44970; 36415; 74177; 80048; 80053; 81001; 85007; 85025; 86328; 96365; 96375; 99284; G0378; J2405; J2543; J2710; Q9967

== ENCOUNTER → 2020-11-30 11:12 | Outpatient (CLI) | payer OTHER, SELFPAY ==
[2020-12-04 14:51] LABS: Testosterone,Total 209 ng/dL (264-916)
== END ==
PROVIDERS: Visit Provider Internal Medicine Adolescent Medicine
DX: E29.1 Testicular hypofunction (principal)
CPT/HCPCS: 36415; 84403

== ENCOUNTER → 2021-01-18 10:38 | Outpatient (CLI) | payer OTHER, SELFPAY ==
[2021-01-18 11:25] LABS: Basophils # 0.1 K/mm3 (0-0.2); Basophils % 0.8 % (0.1-2.0); Eosinophils # 0.1 K/mm3 (0.0-0.4); Eosinophils % 1.7 % (0.1-12.0); Hematocrit 42.2 % (42.0-52.0); Hemoglobin 14.1 g/dL (14.1-18.0); Lymphocytes # 2.7 K/mm3 (0.7-4.5); Lymphocytes % 34.5 % (10-50); Mean Corpuscular HGB Conc 33.4 g/dL (31.8-35.4); Mean Corpuscular Hemoglobin 29.8 pg (27.0-31.2); Mean Corpuscular Volume 89.2 fl (80-94); Mean Platelet Volume 9.9 fl (7.4-10.4); Monocytes # 0.6 K/mm3 (0.1-1.0); Monocytes % 7.1 % (1.7-9.3); Neutrophils # 4.3 K/mm3 (1.8-7.8); Neutrophils % 55.9 % (37.0-80.0); Platelet Count 188 K/mm3 (142-424); Red Blood Count 4.73 M/mm3 (4.60-6.20); Red Cell Distribution Width 13.4 % (11.5-17.5); White Blood Count 7.7 K/mm3 (4.8-10.8)
[2021-01-18 11:57] LABS: Alanine Aminotransferase 21 U/L (12-78); Albumin Level 4.5 g/dl (3.5-5.0); Albumin/Globulin Ratio 1.8 (1.1-1.8); Alkaline Phosphatase 88 U/L (38-126); Anion Gap 12.3 mEq/L (5-15); Aspartate Amino Transferase 25 U/L (17-59); Bilirubin,Total 0.7 mg/dl (0.2-1.3); Blood Urea Nitrogen 10 mg/dl (9-20); Calcium 9.7 mg/dl (8.4-10.2); Carbon Dioxide 25 mmol/L (22.0-30.0); Chloride 105 mmol/L (98-107); Estimated Glomerular Filt Rate 101 ml/min (>60); GFR (African American) 122 ML/MIN (>60); Globulin 2.5 g/dL (1.3-3.2); Glucose 100 mg/dl (74-100); Potassium 4.3 mmoL/L (3.5-5.1); Sodium 138 mmol/L (136-145)
[2021-01-24 12:56] LABS: Testosterone, Total, LC/MS 436.8 ng/dL (264.0-916.0)
== END ==
PROVIDERS: Visit Provider Internal Medicine Adolescent Medicine
DX: I10 Essential (primary) hypertension (principal); E29.1 Testicular hypofunction
CPT/HCPCS: 36415; 80053; 84403; 85025

== ENCOUNTER → 2021-08-02 09:52 | Outpatient (CLI) | payer SELFPAY ==
[2021-08-02 10:30] LABS: Basophils # 0.1 K/mm3 (0-0.2); Basophils % 1.1 % (0.1-2.0); Eosinophils # 0.2 K/mm3 (0.0-0.4); Eosinophils % 1.8 % (0.1-12.0); Hematocrit 46.3 % (42.0-52.0); Hemoglobin 15.1 g/dL (14.1-18.0); Lymphocytes # 2.8 K/mm3 (0.7-4.5); Lymphocytes % 28.6 % (10-50); Mean Corpuscular HGB Conc 32.6 g/dL (31.8-35.4); Mean Corpuscular Hemoglobin 31.4 pg (27.0-31.2); Mean Corpuscular Volume 96.3 fl (80-94); Mean Platelet Volume 10.9 fl (7.4-10.4); Monocytes # 0.7 K/mm3 (0.1-1.0); Monocytes % 6.9 % (1.7-9.3); Neutrophils # 6.1 K/mm3 (1.8-7.8); Neutrophils % 61.5 % (37.0-80.0); Platelet Count 218 K/mm3 (142-424); Red Blood Count 4.81 M/mm3 (4.60-6.20); Red Cell Distribution Width 13.3 % (11.5-17.5); White Blood Count 9.9 K/mm3 (4.8-10.8)
[2021-08-02 10:46] LABS: Chloride 104 mmol/L (98-107); Potassium 4.2 mmoL/L (3.5-5.1); Sodium 138 mmol/L (136-145)
[2021-08-02 10:49] LABS: Alanine Aminotransferase 27 U/L (12-78); Albumin Level 4.3 g/dl (3.5-5.0); Albumin/Globulin Ratio 1.7 (1.1-1.8); Alkaline Phosphatase 73 U/L (38-126); Anion Gap 10.2 mEq/L (5-15); Aspartate Amino Transferase 23 U/L (17-59); Bilirubin,Total 0.7 mg/dl (0.2-1.3); Blood Urea Nitrogen 7 mg/dl (9-20); Calcium 9.7 mg/dl (8.4-10.2); Carbon Dioxide 28 mmol/L (22.0-30.0); Cholesterol 203 mg/dl (140-200); Estimated Glomerular Filt Rate 117 ml/min (>60); GFR (African American) 142 ML/MIN (>60); Globulin 2.6 g/dL (1.3-3.2); Glucose 102 mg/dl (74-100); Total Protein,Serum 6.9 g/dl (6.3-8.2); Triglycerides 126 mg/dl (30-150); VLDL Cholesterol 25 mg/dL (0-40)
[2021-08-02 10:50] LABS: Chol/HDL Ratio 4.1 (1-3.5); HDL Cholesterol 50 mg/dl (40-60)
[2021-08-02 11:01] LABS: Direct LDL Cholesterol 137.63 mg/dL (100-129)
[2021-08-03 07:22] LABS: Testosterone,Total 248 ng/dL (264-916)
== END ==
PROVIDERS: Visit Provider Internal Medicine Adolescent Medicine
DX: I10 Essential (primary) hypertension (principal); E29.1 Testicular hypofunction
CPT/HCPCS: 36415; 80053; 80061; 84403; 85025

== ENCOUNTER → 2022-07-03 08:13 | Outpatient (CLI) | payer BC, SELFPAY ==
--- NOTE | 2022-07-03 08:19 | CT_ITS ---
FINAL REPORT CLINICAL HISTORY: PERSONAL HISTORY OF NICOTINE. smoker, 2 ppd x 27 years. copd family hx of lung cancer FINDINGS: Low-Dose Chest CT CTDI vol (mGy): 2.90 DLP (mGy-cm): 118.55 Axial images were obtained from the lung apex to the mid abdomen by computed tomography. Low-dose protocol was utilized. FINDINGS: CHEST: There is no axillary adenopathy. There is no hilar or mediastinal adenopathy. The heart is proper size. There is no pericardial or pleural effusion. Limited images of the upper abdomen demonstrate renal lesions probably representing cysts. Lung window images demonstrate no suspicious infiltrate or nodule. Linear densities in the lung bases compatible with atelectasis or scarring. IMPRESSION: Lung RADS category 1. Recommend 12 month follow-up low-dose chest CT. Reviewed, Interpreted and Dictated by José Luis Hussein MD Transcribed by Robert Holt Authenticated and [facility]
== END ==
PROVIDERS: PCP Internal Medicine Adolescent Medicine; Visit Provider Internal Medicine Adolescent Medicine
DX: Z87.891 Personal history of nicotine dependence (principal); Z12.2 Encounter for screening for malignant neoplasm of respiratory organs
CPT/HCPCS: 71271

== ENCOUNTER → 2023-04-24 08:24 | Outpatient (CLI) | payer BC, SELFPAY ==
[2023-04-24 08:48] LABS: Basophils % 0.7 % (0.1-2.0); Eosinophils # 0.2 K/mm3 (0.0-0.4); Eosinophils % 2.3 % (0.1-12.0); Hematocrit 43.2 % (42.0-52.0); Lymphocytes # 2.5 K/mm3 (0.7-4.5); Lymphocytes % 37.9 % (10-50); Mean Corpuscular HGB Conc 32.4 g/dL (31.8-35.4); Mean Corpuscular Hemoglobin 29.7 pg (27.0-31.2); Mean Corpuscular Volume 91.8 fl (80-94); Mean Platelet Volume 8.5 fl (7.4-10.4); Monocytes # 0.6 K/mm3 (0.1-1.0); Monocytes % 8.9 % (1.7-9.3); Neutrophils # 3.3 K/mm3 (1.8-7.8); Neutrophils % 50.3 % (37.0-80.0); Platelet Count 240 K/mm3 (142-424); Red Cell Distribution Width 13.2 % (11.5-17.5); White Blood Count 6.7 K/mm3 (4.8-10.8)
[2023-04-24 09:25] LABS: Alanine Aminotransferase 25 U/L (12-78); Albumin Level 4.3 g/dl (3.5-5.0); Albumin/Globulin Ratio 1.8 (1.1-1.8); Alkaline Phosphatase 82 U/L (38-126); Anion Gap 10.3 mEq/L (5-15); Aspartate Amino Transferase 24 U/L (17-59); Bilirubin,Total 0.7 mg/dl (0.2-1.3); Blood Urea Nitrogen 19 mg/dl (9-20); Calcium 9.6 mg/dl (8.4-10.2); Carbon Dioxide 27 mmol/L (22.0-30.0); Chloride 103 mmol/L (98-107); Chol/HDL Ratio 3.5 (1-3.5); Cholesterol 183 mg/dl (140-200); Estimated Glomerular Filt Rate 77 ml/min (>60); GFR (African American) 93 ML/MIN (>60); Globulin 2.4 g/dL (1.3-3.2); Glucose 97 mg/dl (74-100); HDL Cholesterol 53 mg/dl (40-60); Potassium 4.3 mmoL/L (3.5-5.1); Sodium 136 mmol/L (136-145); Total Protein,Serum 6.7 g/dl (6.3-8.2); Triglycerides 131 mg/dl (30-150); VLDL Cholesterol 26 mg/dL (0-40)
[2023-04-24 09:35] LABS: Direct LDL Cholesterol 100.27 mg/dL (100-129)
[2023-04-25 07:30] LABS: Testosterone,Total 283 ng/dL (264-916)
== END ==
PROVIDERS: PCP Nurse Practitioner Family; Visit Provider Nurse Practitioner Family
DX: Z00.00 Encounter for general adult medical examination without abnormal findings (principal); E29.1 Testicular hypofunction; D64.9 Anemia, unspecified
CPT/HCPCS: 36415; 80053; 80061; 84403; 85025

== ENCOUNTER 2024-01-21 12:54 | Outpatient (CLI) | payer BC, SELFPAY ==
--- NOTE | 2024-01-21 13:04 | CT_ITS ---
FINAL REPORT CLINICAL HISTORY: H/O TOBACCO USE,CRISTI smokes 2 pks per day for 59 yrs current smoker COMPARISON: 07/03/2022 FINDINGS: Axial images were obtained from the lung apex to the mid abdomen by computed tomography. Low-dose protocol was utilized. CTDl vol(mGy): 2.90 DLP (mGy-cm): 124.02 FINDINGS: There is no axillary adenopathy. There are a few small scattered mediastinal lymph nodes. The heart size is normal. There is no pericardial or pleural effusion. Limited images of the upper abdomen are unremarkable. Lung window images demonstrate no suspicious infiltrate or nodule. There is mild scarring or atelectasis at the lung bases. IMPRESSION: Lung RADS category 1. Recommend 12 month follow-up low-dose chest CT. Reviewed, Interpreted and Dictated by Sandoval Pacheco MD Transcribed by Kayleigh Velasco Authenticated and . [facility]
== END 2024-01-21 23:59 ==
LOC: RAD 12:54
PROVIDERS: PCP Nurse Practitioner Family; Visit Provider Nurse Practitioner Family
DX: F17.210 Nicotine dependence, cigarettes, uncomplicated (principal); Z12.2 Encounter for screening for malignant neoplasm of respiratory organs; R06.02 Shortness of breath
CPT/HCPCS: 71271

== ENCOUNTER 2024-08-29 09:08 | Outpatient (CLI) | payer BC, SELFPAY ==
[2024-08-29 09:56] LABS: Basophils # 0.1 K/mm3 (0-0.2); Basophils % 0.9 % (0.1-2.0); Eosinophils # 0.1 K/mm3 (0.0-0.4); Eosinophils % 0.7 % (0.1-12.0); Hematocrit 39.3 % (42.0-52.0); Hemoglobin 13.8 g/dL (14.1-18.0); Lymphocytes # 4.9 K/mm3 (0.7-4.5); Lymphocytes % 36.5 % (10-50); Mean Corpuscular HGB Conc 35.1 g/dL (31.8-35.4); Mean Corpuscular Hemoglobin 32.2 pg (27.0-31.2); Mean Corpuscular Volume 91.7 fl (80-94); Mean Platelet Volume 8.8 fl (7.4-10.4); Monocytes % 7.1 % (1.7-9.3); Neutrophils # 7.4 K/mm3 (1.8-7.8); Neutrophils % 54.9 % (37.0-80.0); Platelet Count 256 K/mm3 (142-424); Red Blood Count 4.29 M/mm3 (4.60-6.20); Red Cell Distribution Width 13.5 % (11.5-17.5); White Blood Count 13.4 K/mm3 (4.8-10.8)
[2024-08-29 10:36] LABS: Alanine Aminotransferase 44 U/L (12-78); Albumin Level 4.2 g/dl (3.5-5.0); Albumin/Globulin Ratio 2.1 (1.1-1.8); Alkaline Phosphatase 58 U/L (38-126); Anion Gap 10.3 mEq/L (5-15); Aspartate Amino Transferase 30 U/L (17-59); Bilirubin,Total 0.6 mg/dl (0.2-1.3); Blood Urea Nitrogen 14 mg/dl (9-20); Calcium 9.6 mg/dl (8.4-10.2); Carbon Dioxide 27 mmol/L (22.0-30.0); Chloride 106 mmol/L (98-107); Chol/HDL Ratio 1.7 (1-3.5); Cholesterol 128 mg/dl (140-200); Estimated Glomerular Filt Rate 99 ml/min (>60); GFR (African American) 120 ML/MIN (>60); Glucose 82 mg/dl (74-100); HDL Cholesterol 74 mg/dl (40-60); Potassium 4.3 mmoL/L (3.5-5.1); Sodium 139 mmol/L (136-145); Total Protein,Serum 6.2 g/dl (6.3-8.2); Triglycerides 75 mg/dl (30-150); VLDL Cholesterol 15 mg/dL (0-40)
[2024-08-29 10:47] LABS: Direct LDL Cholesterol 47.06 mg/dL (100-129)
[2024-08-29 11:06] LABS: Thyroid Stimulating Hormone 4.87 uIU/mL (0.465-4.68)
[2024-08-30 08:22] LABS: Testosterone,Total 229 ng/dL (264-916)
== END 2024-08-29 23:59 | disposition home or self-care (01) ==
LOC: LAB 09:12
PROVIDERS: PCP Nurse Practitioner Family; Visit Provider Nurse Practitioner Family
DX: E78.2 Mixed hyperlipidemia (principal); R53.83 Other fatigue
CPT/HCPCS: 36415; 80050; 80053; 80061; 84403; 84443; 85025

== ENCOUNTER 2024-10-05 07:42 | Outpatient (CLI) | payer BC, SELFPAY ==
[2024-10-05 06:43] VITALS: BMI 25.7
[2024-10-05] MEDS: METOPROLOL TARTRATE 50MG TABLET *IVABRADINE+METOPROLOL REGIMINE 75 MG PO (08:11)
[2024-10-05] MEDS: IVABRADINE HCL 7.5MG TABLET *IVABRADINE+METOPROLOL REGIMINE 15 MG PO (08:11)
[2024-10-05 08:12] VITALS: BP 133/81; PULSE 83; RESP 18; TEMP 36.5; O2SAT 96
[2024-10-05 08:51] LABS: Blood Urea Nitrogen 16 mg/dl (9-20); Calcium 9.1 mg/dl (8.4-10.2); Carbon Dioxide 27 mmol/L (22.0-30.0); Chloride 104 mmol/L (98-107); Creatinine Clearance Estimated 106 mL/min (50-200); Estimated Glomerular Filt Rate 87 ml/min (>60); GFR (African American) 105 ML/MIN (>60); Glucose 96 mg/dl (74-100); Sodium 137 mmol/L (136-145)
[2024-10-05 09:02] LABS: Anion Gap 10.1 mEq/L (5-15); Potassium 4.1 mmoL/L (3.5-5.1)
[2024-10-05 09:15] VITALS: BP 134/80; PULSE 50; RESP 18; O2SAT 97
[2024-10-05 09:18] VITALS: BP 109/58; PULSE 46; RESP 16; O2SAT 98
[2024-10-05 09:21] VITALS: BP 107/57; PULSE 50; RESP 18; O2SAT 95
[2024-10-05] MEDS: IOPAMIDOL-370 (76%);100ML BOTTLE 85 ML IV (09:26)
[2024-10-05] MEDS: SODIUM CHLORIDE 0.9% 10ML SYR (RAD ONLY) 10 ML IV (09:26)
[2024-10-05] MEDS: 0.9 % SODIUM CHLORIDE 50 ML VIAL IV (09:26)
[2024-10-05 09:30] VITALS: BP 128/76; PULSE 54; RESP 16; O2SAT 96
== END 2024-10-05 09:34 | disposition home or self-care (01) ==
PROVIDERS: PCP Nurse Practitioner Family; Visit Provider Nurse Practitioner Family
DX: R07.89 Other chest pain (principal); R06.09 Other forms of dyspnea
CPT/HCPCS: 75574; 80048; Q9967